=== PATIENT | female | born 1960 | race Caucasian/White ===

== ENCOUNTER → 2021-04-13 | Outpatient (CLI) | payer MEDICARE, OTHER ==
[~2021-04-13] MED LIST: BACTRIM DS TAB1 EACH PO; LEVEMIR100 UNIT/1 SQ; MELATONIN10 M2 PO; NORCO 5-325 TA1 EACH PO; ULTRA-LIGHT RO1 EACH MC; ZOFRAN4 MG PO; [UNRECOGNIZED DRUG - CODE] SQ
[2021-04-13 10:01] LABS: HEMOGLOBIN 14.6 gm/dl (12.3-15.3); RED BLOOD COUNT 5.34 M/UL (4.00-5.10)
[2021-04-13 10:27] LABS: BUN/CREATININE RATIO 16 (0-10)
[2021-04-14 07:10] LABS: CREATININE, URINE 174.6 mg/dL (Not Estab.)
[2021-04-14 08:10] LABS: THYROXINE (T4) 9.5 ug/dL (4.5-12.0)
== END ==
LOC: LAB 09:32
PROVIDERS: Nurse Practitioner Family
DX: I10 Essential (primary) hypertension (principal); E11.9 Type 2 diabetes mellitus without complications; M79.604 Pain in right leg; M79.605 Pain in left leg; R42 Dizziness and giddiness; Z13.220 Encounter for screening for lipoid disorders; R53.82 Chronic fatigue, unspecified
CPT/HCPCS: 80053; 80061; 81001; 82043; 82570; 83036; 84436; 84443; 84480; 85025

== ENCOUNTER → 2021-05-13 | Outpatient (CLI) | payer MEDICARE, OTHER ==
[2021-05-13 11:18] LABS: RED BLOOD COUNT 4.87 M/UL (4.00-5.10); WHITE BLOOD COUNT 4.8 K/UL (4.5-11.0)
[2021-05-13 11:45] LABS: BUN/CREATININE RATIO 26 (0-10)
[2021-05-14 04:10] LABS: CREATININE, URINE 126.9 mg/dL (Not Estab.)
[2021-05-14 05:10] LABS: THYROXINE (T4) 7.5 ug/dL (4.5-12.0)
== END ==
LOC: LAB 09:35
PROVIDERS: Nurse Practitioner Family
DX: Z13.220 Encounter for screening for lipoid disorders (principal); E11.9 Type 2 diabetes mellitus without complications; I10 Essential (primary) hypertension; M79.604 Pain in right leg; M79.605 Pain in left leg; R42 Dizziness and giddiness; R53.82 Chronic fatigue, unspecified
CPT/HCPCS: 36415; 80053; 80061; 81001; 82043; 82570; 83036; 84436; 84443; 84480; 85025

== ENCOUNTER 2021-08-17 13:54 | Observation (INO) | payer MEDICARE, OTHER ==
[~2021-08-17] VITALS: Ht 167.6 cm; Wt 86.2 kg
[2021-08-17 14:54] LABS: HEMOGLOBIN 12.9 gm/dl (12.3-15.3); RED BLOOD COUNT 4.32 M/UL (4.00-5.10); WHITE BLOOD COUNT 5.7 K/UL (4.5-11.0)
[2021-08-17 15:17] LABS: BUN/CREATININE RATIO 18 (0-10)
[2021-08-17] MEDS ORDERED: GLUCOPHAGE XR500 M1 PO (19:11)
[2021-08-17] MEDS ORDERED: HYGROTON TAB 2525 MG PO (19:11)
[2021-08-17] MEDS ORDERED: LISINOPRIL20 MG PO (19:12)
[2021-08-17] MEDS ORDERED: AMLODIPINE BESYL5 MG PO (19:12)
[2021-08-17] MEDS ORDERED: HYDROXYZINE HCL25 MG PO (19:13)
[2021-08-17] MEDS ORDERED: METOPROLOL SUCC25 MG PO (19:13)
[2021-08-18 07:37] LABS: HEMOGLOBIN 11.8 gm/dl (12.3-15.3); RED BLOOD COUNT 4.01 M/UL (4.00-5.10); WHITE BLOOD COUNT 4.4 K/UL (4.5-11.0)
[2021-08-18 07:52] LABS: BUN/CREATININE RATIO 18 (0-10)
[2021-08-19 05:35] LABS: HEMOGLOBIN 12.9 gm/dl (12.3-15.3); RED BLOOD COUNT 4.37 M/UL (4.00-5.10)
[2021-08-19 06:20] LABS: BUN/CREATININE RATIO 17 (0-10)
[2021-08-19] MEDS ORDERED: LEVOFLOXACIN500 MG PO (10:42)
== END 2021-08-19 16:32 | disposition home or self-care (01) ==
LOC: ER1 13:54 → CDU 16:56 → M/S 16:56
PROVIDERS: Emergency Medicine; ADMIT Internal Medicine
DX: S91.332A Puncture wound without foreign body, left foot, initial encounter (principal); L03.116 Cellulitis of left lower limb; E11.628 Type 2 diabetes mellitus with other skin complications; I10 Essential (primary) hypertension; Z20.822 Contact with and (suspected) exposure to COVID-19; Z79.890 Hormone replacement therapy; Z79.84 Long term (current) use of oral hypoglycemic drugs; Z79.899 Other long term (current) drug therapy; Z87.442 Personal history of urinary calculi; W45.0XXA Nail entering through skin, initial encounter
CPT/HCPCS: 36415; 73701; 80053; 80202; 81001; 82550; 82553; 82962; 83605; 84484; 85025; 85652; 86140; 87040; 87086; 93005; 96374; 96375; 99285; G0378; J1650; J2543; J3370; J7070; Q9967; U0002

== ENCOUNTER → 2021-12-25 | Outpatient (CLI) | payer MEDICARE, OTHER ==
[~2021-12-25] MED LIST changes: +AMLODIPINE BESYL5 MG PO; +GLUCOPHAGE XR500 M1 PO; +HYDROXYZINE HCL25 MG PO; +HYGROTON TAB 2525 MG PO; +LEVOFLOXACIN500 MG PO; +LISINOPRIL20 MG PO; +METOPROLOL SUCC25 MG PO
[2021-12-25 12:31] LABS: HEMOGLOBIN 14.4 gm/dl (12.3-15.3); RED BLOOD COUNT 5.02 M/UL (4.00-5.10); WHITE BLOOD COUNT 5.7 K/UL (4.5-11.0)
[2021-12-25 12:51] LABS: BUN/CREATININE RATIO 20 (0-10)
[2021-12-26 09:15] LABS: THYROXINE (T4) 9.2 ug/dL (4.5-12.0)
[2021-12-27 05:10] LABS: VITAMIN D, 25-HYDROXY 24.7 ng/mL (30.0-100.0)
== END ==
LOC: LAB 10:37
PROVIDERS: Physical Medicine & Rehabilitation
DX: Z13.220 Encounter for screening for lipoid disorders (principal); E11.9 Type 2 diabetes mellitus without complications; R53.82 Chronic fatigue, unspecified; I10 Essential (primary) hypertension
CPT/HCPCS: 36415; 80053; 80061; 81001; 83036; 84436; 84443; 84480; 85025

== ENCOUNTER 2022-03-13 11:27 | Emergency (ER) | payer MEDICARE, MEDICAID ==
[2022-03-13 12:39] LABS: HEMOGLOBIN 12.8 gm/dl (12.3-15.3); RED BLOOD COUNT 4.41 M/UL (4.00-5.10); WHITE BLOOD COUNT 6.1 K/UL (4.5-11.0)
[2022-03-13 12:55] LABS: BUN/CREATININE RATIO 26 (0-10)
[2022-03-13] MEDS ORDERED: CLEOCIN HCL150 MG PO (14:32)
[2022-03-13] MEDS ORDERED: NEURONTIN100 MG PO (14:37)
== END 2022-03-13 15:12 | disposition home or self-care (01) ==
LOC: ER1 11:27
PROVIDERS: Physician Assistant
DX: L03.317 Cellulitis of buttock (principal); L03.115 Cellulitis of right lower limb; B02.29 Other postherpetic nervous system involvement; E11.9 Type 2 diabetes mellitus without complications; Z79.84 Long term (current) use of oral hypoglycemic drugs; Z87.442 Personal history of urinary calculi
CPT/HCPCS: 80053; 83605; 85025; 85652; 86140; 87070; 87205; 99283

== ENCOUNTER 2022-03-15 16:27 | Emergency (ER) | payer MEDICARE, OTHER ==
[~2022-03-15 16:27] MED LIST changes: +CLEOCIN HCL150 MG PO; +NEURONTIN100 MG PO
== END 2022-03-15 21:00 | disposition home or self-care (01) ==
LOC: ER1 16:27
DX: R20.2 Paresthesia of skin (principal); E11.9 Type 2 diabetes mellitus without complications
CPT/HCPCS: 73630; 99283

== ENCOUNTER 2022-03-22 13:25 | Observation (INO) | payer MEDICARE, OTHER ==
[~2022-03-22] VITALS: Ht 167.6 cm; Wt 90.7 kg
[2022-03-22 15:44] LABS: BUN/CREATININE RATIO 28 (0-10)
[2022-03-22 15:50] LABS: HEMOGLOBIN 14.4 gm/dl (12.3-15.3); RED BLOOD COUNT 4.84 M/UL (4.00-5.10)
[2022-03-23 06:36] LABS: HEMOGLOBIN 13.9 gm/dl (12.3-15.3); RED BLOOD COUNT 4.7 M/UL (4.00-5.10); WHITE BLOOD COUNT 6.5 K/UL (4.5-11.0)
[2022-03-23 07:15] LABS: BUN/CREATININE RATIO 25 (0-10)
[2022-03-24 04:14] LABS: HEMOGLOBIN 13.3 gm/dl (12.3-15.3); RED BLOOD COUNT 4.56 M/UL (4.00-5.10); WHITE BLOOD COUNT 6.1 K/UL (4.5-11.0)
[2022-03-24 04:32] LABS: BUN/CREATININE RATIO 27 (0-10)
[2022-03-24] MEDS ORDERED: ASPIRIN EC81 MG PO (16:00)
[2022-03-24] MEDS ORDERED: LIPITOR40 MG PO (16:00)
[2022-03-24] MEDS ORDERED: MECLIZINE HCL25 MG PO (16:00)
[2022-03-24] MEDS ORDERED: NEURONTIN 100100 MG PO (16:29)
--- NOTE | 2022-03-24 18:10 | NUR ---
MANAGER APPROVED A CAB FOR THE PATIENT
== END 2022-03-24 18:51 | disposition home or self-care (01) ==
LOC: ER1 13:25 → MED SURG 4 18:56 → CDU 18:56 → MED SURG 4 03-23 07:20
PROVIDERS: Emergency Medicine; Internal Medicine; ADMIT Internal Medicine
DX: R42 Dizziness and giddiness (principal); R53.1 Weakness; I49.3 Ventricular premature depolarization; E11.40 Type 2 diabetes mellitus with diabetic neuropathy, unspecified; G47.00 Insomnia, unspecified; B02.9 Zoster without complications; I10 Essential (primary) hypertension; J98.6 Disorders of diaphragm; Z20.822 Contact with and (suspected) exposure to COVID-19; Z86.73 Personal history of transient ischemic attack (TIA), and cerebral infarction without residual deficits; Z79.82 Long term (current) use of aspirin; Z79.890 Hormone replacement therapy; Z79.84 Long term (current) use of oral hypoglycemic drugs; Z79.899 Other long term (current) drug therapy
CPT/HCPCS: ECHO; 36415; 70496; 70498; 70551; 71045; 80053; 80061; 82550; 82553; 82962; 83036; 83690; 83735; 83880; 84100; 84439; 84443; 84484; 85025; 85027; 85610; 85730; 93005; 93306; 96372; 96374; 97116; 97116-GP-CQ; 97161; 99285; G0378; J1650; J2405; Q9967; U0002

== ENCOUNTER → 2022-06-02 | Outpatient (CLI) | payer MEDICARE, OTHER ==
[~2022-06-02] MED LIST changes: +ASPIRIN EC81 MG PO; +LIPITOR40 MG PO; +MECLIZINE HCL25 MG PO; +NEURONTIN 100100 MG PO
== END ==
LOC: LAB 09:51
DX: E11.9 Type 2 diabetes mellitus without complications (principal)
CPT/HCPCS: 36415; 83036

== ENCOUNTER → 2022-07-15 | Outpatient (CLI) | payer MEDICARE, OTHER ==
[~2022-07-15] VITALS: Ht 167.6 cm; Wt 92.1 kg
[~2022-07-15] MED LIST changes: +ATORVASTATIN CA40 MG PO; +GABAPENTIN100 MG PO; +GABAPENTIN400 MG PO; +GABAPENTIN800 MG PO; -LISINOPRIL20 MG PO; +LISINOPRIL40 MG PO; -METOPROLOL SUCC25 MG PO; +METOPROLOL SUCC50 MG PO; +TRULICITY0.75 MG/0. SQ
[2022-07-15 10:48] LABS: HEMOGLOBIN 13.4 gm/dl (12.3-15.3); RED BLOOD COUNT 4.59 M/UL (4.00-5.10); WHITE BLOOD COUNT 5.9 K/UL (4.5-11.0)
[2022-07-15 11:13] LABS: BUN/CREATININE RATIO 24 (0-10)
== END ==
LOC: OPSV2 09:31 → EDSTATUS 10:00 → OPSV2 10:00
PROVIDERS: Orthopaedic Surgery
DX: Z01.818 Encounter for other preprocedural examination (principal); M17.12 Unilateral primary osteoarthritis, left knee; J98.11 Atelectasis
CPT/HCPCS: 71046; 80048; 85025; 93005

== ENCOUNTER → 2022-08-05 | Day surgery (SDC) | payer MEDICARE ==
[~2022-08-05] VITALS: Ht 167.6 cm; Wt 92.1 kg
[~2022-08-05] MED LIST changes: +GABAPENTIN600 MG PO; +LOW DOSE ASPIRI81 MG PO
[2022-08-05 07:11] LABS: BUN/CREATININE RATIO 28 (0-10)
== END | disposition home or self-care (01) ==
LOC: OR 05:07
PROVIDERS: Orthopaedic Surgery
DX: M17.12 Unilateral primary osteoarthritis, left knee (principal); Z53.9 Procedure and treatment not carried out, unspecified reason; I10 Essential (primary) hypertension; E78.5 Hyperlipidemia, unspecified; E66.01 Morbid (severe) obesity due to excess calories; E11.9 Type 2 diabetes mellitus without complications; Z79.82 Long term (current) use of aspirin; Z79.899 Other long term (current) drug therapy; Z68.32 Body mass index [BMI] 32.0-32.9, adult
CPT/HCPCS: 80048; 82962; 86850; 86900; 86901; J0171; J0690; J1100; J2274; J2795